=== PATIENT | male | born 1960 | race Caucasian/White ===

== ENCOUNTER 2024-08-03 07:54 | Inpatient (IN) ==
[2024-08-03] MEDS ORDERED: ULTANE GAS IN ONE (10:13)
[2024-08-03] MEDS ORDERED: XYLOCAINE 2 % (PLAIN) ONE (10:13)
[2024-08-03] MEDS ORDERED: KETAMINE HCL ONE (10:13)
[2024-08-03 11:44] LABS: BASOPHILS # (AUTO) 0.1 X10^3/uL (0.0-0.1); BASOPHILS % (AUTO) 0.9 % (0.2-1.0); EOSINOPHILS % (AUTO) 0.2 % (0.9-2.9); HEMOGLOBIN 11.3 g/dL (13.5-18.0); LYMPHOCYTES # (AUTO) 0.8 X10^3/uL (1.3-2.9); LYMPHOCYTES % (AUTO) 7.1 % (21.0-51.0); MEAN CORPUSCULAR HEMOGLOBIN 29.3 pg (27.0-34.0); MEAN CORPUSCULAR HGB CONC 34.2 g/dL (33.0-35.0); MEAN CORPUSCULAR VOLUME 85.7 fL (80.0-100.0); MEAN PLATELET VOLUME 6.4 fL (7.4-11.0); MONOCYTES # (AUTO) 1.5 x10^3/uL (0.3-0.8); MONOCYTES % (AUTO) 12.5 % (0.0-13.0); NEUTROPHILS # (AUTO) 9.3 x10^3/uL (2.2-4.8); NEUTROPHILS % (AUTO) 79.3 % (42.0-75.0); PLATELET COUNT 575 X10^3/uL (150.0-450.0); RED BLOOD COUNT 3.84 X10^6/uL (4.7-6.0); RED CELL DISTRIBUTION WIDTH 14.2 % (11.6-16.5); WHITE BLOOD COUNT 11.8 X10^3/uL (3.6-10.0)
[2024-08-03] MEDS: PERCOCET TAB 5/325 MG PO PRN (11:48)
[2024-08-03] MEDS: ZOSYN VIAL 2.25 GRAMS 2.25 G in NS 100 ML IV 100 ML IV SCH (11:49)
[2024-08-03] MEDS: D5 1/2 NS 1,000 ML 1,000 ML IV SCH (11:49)
[2024-08-03] MEDS: NS 250 ML IV 25 ML IV PRN (11:49)
[2024-08-03 11:58] LABS: ALANINE AMINOTRANSFERASE 18 Units/L (12-78); ALKALINE PHOSPHATASE 94 Units/L (46-116); ASPARTATE AMINO TRANSFERASE 18 Units/L (15-37); BLOOD UREA NITROGEN 17 mg/dL (7-18); CALCIUM 9.4 mg/dL (8.5-10.1); CHLORIDE 100 mmol/L (98-107); COR CA(FOR HYPOALB) 10.2 mg/dL (8.5-10.1); CREATININE 1.11 mg/dL (0.70-1.30); GLUCOSE 98 mg/dL (65-99); POTASSIUM 3.6 mmol/L (3.5-5.1); SODIUM 137 mmol/L (136-145); TOTAL PROTEIN 9.4 g/dL (6.4-8.2); eGFR NON BLACK RACES > 60 (>60)
[2024-08-03] MEDS: LOVENOX INJ 40 MG SYR SC SCH (14:26)
[2024-08-03] MEDS: MORPHINE SULFATE INJ 2 MG INJ IVP PRN (15:22)
[2024-08-04 06:12] LABS: BASOPHILS # (AUTO) 0.1 X10^3/uL (0.0-0.1); EOSINOPHILS # (AUTO) 0.1 x10^3/uL (0.0-0.2); EOSINOPHILS % (AUTO) 0.8 % (0.9-2.9); HEMATOCRIT 28.3 % (42.0-54.0); HEMOGLOBIN 9.8 g/dL (13.5-18.0); LYMPHOCYTES # (AUTO) 1.1 X10^3/uL (1.3-2.9); LYMPHOCYTES % (AUTO) 14.8 % (21.0-51.0); MEAN CORPUSCULAR HEMOGLOBIN 29.4 pg (27.0-34.0); MEAN CORPUSCULAR HGB CONC 34.8 g/dL (33.0-35.0); MEAN CORPUSCULAR VOLUME 84.5 fL (80.0-100.0); MEAN PLATELET VOLUME 6.7 fL (7.4-11.0); MONOCYTES # (AUTO) 1.4 x10^3/uL (0.3-0.8); MONOCYTES % (AUTO) 18.3 % (0.0-13.0); NEUTROPHILS # (AUTO) 4.8 x10^3/uL (2.2-4.8); NEUTROPHILS % (AUTO) 65.1 % (42.0-75.0); PLATELET COUNT 481 X10^3/uL (150.0-450.0); RED BLOOD COUNT 3.35 X10^6/uL (4.7-6.0); RED CELL DISTRIBUTION WIDTH 14.1 % (11.6-16.5); WHITE BLOOD COUNT 7.4 X10^3/uL (3.6-10.0)
[2024-08-04 06:26] LABS: ALANINE AMINOTRANSFERASE 13 Units/L (12-78); ALKALINE PHOSPHATASE 70 Units/L (46-116); ASPARTATE AMINO TRANSFERASE 10 Units/L (15-37); BLOOD UREA NITROGEN 10 mg/dL (7-18); CALCIUM 8.3 mg/dL (8.5-10.1); CARBON DIOXIDE 26.4 mmol/L (21-32); CHLORIDE 103 mmol/L (98-107); COR CA(FOR HYPOALB) 9.9 mg/dL (8.5-10.1); COR NA(FOR HYPERGLY) 139 mmol/L (136-145); CREATININE 0.91 mg/dL (0.70-1.30); GLUCOSE 120 mg/dL (65-99); MAGNESIUM 1.8 mg/dL (2.0-2.9); POTASSIUM 3.3 mmol/L (3.5-5.1); SODIUM 139 mmol/L (136-145); TOTAL PROTEIN 7.2 g/dL (6.4-8.2); eGFR NON BLACK RACES > 60 (>60)
[2024-08-04] MEDS ORDERED: CONSULT PHARMACY - POTASSIUM & MAGNESIUM XX SCH (07:00)
[2024-08-04] MEDS: MAG-OX TAB PO SCH (08:54)
[2024-08-04] MEDS: K-DUR TAB 20 MEQ PO SCH (08:55)
--- NOTE | 2024-08-04 11:06 | DR.CONSULT ---
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 He was admitted by general surgery for possible perirectal abscess. Patient does report having increased pain in the area. Does not report any fevers or chills. He has no other medical history other than hypertension. Medicine consulted for medical management. Labs/imaging: WBC 7.4, hemoglobin 9.8, platelets 41, sodium 139, potassium 3.3, creatinine 0.91, glucose 120, CEA pending. Patient is currently receiving IV fluids D5 half-normal saline at 80 mL/h, clear liquid diet, IV antibiotics Zosyn. His blood pressure has remained in good control. Will hold on restarting his antihypertensive until blood pressure becomes elevated. Will continue to monitor. General surgery awaiting records from [facility]. He has also had MRI done in [facility]. Possible plan for a colonoscopy or further intervention pending reports. Otherwise we will continue with current treatment plan. Continue closely monitor and follow-up labs/imaging. Follow-up general surgery plan. Past Surgical History Surgical History: Tonsillectomy and Other Family History Family Medical History: Heart Failure Social History Type of Tobacco Use: None Alcohol Use: None Drug Use: None Medications Home Medications: No Known Drug Allergies Allergy (Verified 10/24/21 22:47) CONTINUE taking the following medications cholecalciferol (vitamin D3) 125 mcg (5,000 unit) tablet (Vitamin D3) 125 mcg PO DAILY 08/03/24 [History] ciprofloxacin HCl 500 mg tablet 500 mg PO BID 08/03/24 [History] hydrocodone 10 mg-acetaminophen 325 mg tablet 1 tab PO TID PRN pain 08/03/24 [History] ibuprofen 800 mg tablet 800 mg PO BID 08/03/24 [History] loratadine 10 mg tablet 10 mg PO DAILY 08/03/24 [History] vitamin B complex 1 tab PO DAILY 08/03/24 [History] Review of Systems Constitutional: No Symptoms Reported Eyes: No Symptoms Reported ENT: No Symptoms Reported Respiratory: No Symptoms Reported Cardiovascular: No Symptoms Reported Gastrointestinal: No Symptoms Reported Genitourinary: Other (perirectal pain) Musculoskeletal: No Symptoms Reported Skin: No Symptoms Reported Neurological: No Symptoms Reported Physical Exam Vital Signs: Vital Signs Temperature 98.4 F Temperature 99.2 F Pulse Rate [Left Radial] 60 Pulse Rate [Left Radial] 64 Respiratory Rate 18 Respiratory Rate 20 Respiratory Rate 20 Respiratory Rate 17 Respiratory Rate 22 Respiratory Rate 20 Respiratory Rate 19 Respiratory Rate 18 Blood Pressure [Left Arm] 105/58 Blood Pressure [Left Arm] 116/58 O2 Sat by Pulse Oximetry 97 O2 Sat by Pulse Oximetry 95 Oriented: Normal Eyes: Normal Ear: Normal Nose: Normal Respiratory: Clear Throughout Cardiovascular: Normal Auscultation: Bowel Sounds: Normal Palpation: Normal Tenderness: Normal Skin: Normal Musculoskeletal: Normal Mood Description: Calm Speech Pattern: Clear Plan (1) Perirectal abscess: Status: Acute Plan: Follow general surgery plan continue IV antibiotics (2) History of rectal cancer: Status: Acute (3) Essential hypertension: Status: None Plan: hold medications, monitor blood pressure
[2024-08-04] MEDS: SUPREP BOWEL PREP KIT PO SCH (12:59)
--- NOTE | 2024-08-04 14:07 | DR.PROGNOT ---
HOSPITAL PROGRESS NOTE Progress Note for Day of: Progress Note Date: 08/04/24 Chief Complaint Chief Complaint: Patient is having significant anal discharge with brownish and purulent material from the rectal fistula. Still complaining of tenderness of the left buttock but no drainage f. Had low-grade fever yesterday, today he is afebrile. White count 7.4, hemoglobin 9.8, potassium 3.3 and albumin 2.0. Past Medical Family Social History Past Med/Fam/Surg Hx: No changes since H&P (Controlled hypertension, history of rectal cancer) Allergies: Allergies No Known Drug Allergies Allergy (Verified 10/24/21 22:47) Vital Signs Vital Signs: Vital Signs Temperature 98.4 F Temperature 98.4 F Pulse Rate [Left Radial] 66 Pulse Rate [Left Radial] 60 Respiratory Rate 19 Respiratory Rate 20 Respiratory Rate 20 Respiratory Rate 18 Respiratory Rate 20 Respiratory Rate 20 Respiratory Rate 17 Respiratory Rate 22 Blood Pressure [Left Arm] 112/62 Blood Pressure [Left Arm] 105/58 O2 Sat by Pulse Oximetry 97 O2 Sat by Pulse Oximetry 97 Physical Exam Oriented: Normal Eyes: Normal Ear: Normal Nose: Normal Cardiovascular: Normal GI:Auscultation: Normal GI:Palpation: Normal GI: Tenderness: Normal and Other (Anal discharge from the fistula of the anastomosis. Left buttock abscess is the same with induration and erythema.) Skin: Normal Musculoskeletal: Normal Mood Description: Calm Speech Pattern: Clear Laboratory and Diagnostics 08/04/24 05:40 08/04/24 05:40 Labs: Laboratory WBC 7.4 X10^3/uL (3.6-10.0) 08/04/24 05:40 RBC 3.35 X10^6/uL (4.7-6.0) L 08/04/24 05:40 Hgb 9.8 g/dL (13.5-18.0) L 08/04/24 05:40 Hct 28.3 % (42.0-54.0) L 08/04/24 05:40 MCV 84.5 fL (80.0-100.0) 08/04/24 05:40 MCH 29.4 pg (27.0-34.0) 08/04/24 05:40 MCHC 34.8 g/dL (33.0-35.0) 08/04/24 05:40 RDW 14.1 % (11.6-16.5) 08/04/24 05:40 Plt Count 481 X10^3/uL (150.0-450.0) H 08/04/24 05:40 MPV 6.7 fL (7.4-11.0) L 08/04/24 05:40 Neut % (Auto) 65.1 % (42.0-75.0) 08/04/24 05:40 Lymph % (Auto) 14.8 % (21.0-51.0) L 08/04/24 05:40 [place] % (Auto) 18.3 % (0.0-13.0) H 08/04/24 05:40 Eos % (Auto) 0.8 % (0.9-2.9) L 08/04/24 05:40 Baso % (Auto) 1.0 % (0.2-1.0) 08/04/24 05:40 Neut # (Auto) 4.8 x10^3/uL (2.2-4.8) 08/04/24 05:40 Lymph # (Auto) 1.1 X10^3/uL (1.3-2.9) L 08/04/24 05:40 [place] # (Auto) 1.4 x10^3/uL (0.3-0.8) H 08/04/24 05:40 Eos # (Auto) 0.1 x10^3/uL (0.0-0.2) 08/04/24 05:40 Baso # (Auto) 0.1 X10^3/uL (0.0-0.1) 08/04/24 05:40 Absolute Nucleated RBC 0.0 /100WBC 08/04/24 05:40 Sodium 139 mmol/L (136-145) 08/04/24 05:40 Corrected Sodium 139 mmol/L (136-145) 08/04/24 05:40 Potassium 3.3 mmol/L (3.5-5.1) L 08/04/24 05:40 Chloride 103 mmol/L (98-107) 08/04/24 05:40 Carbon Dioxide 26.4 mmol/L (21-32) 08/04/24 05:40 BUN 10 mg/dL (7-18) 08/04/24 05:40 Creatinine 0.91 mg/dL (0.70-1.30) 08/04/24 05:40 Est GFR (MDRD) Af Amer > 60 (>60) 08/04/24 05:40 Est GFR (MDRD) Non-Af > 60 (>60) 08/04/24 05:40 Glucose 120 mg/dL (65-99) H 08/04/24 05:40 POC Glucose (mg/dL) 113 mg/dL (65-99) H 08/04/24 05:35 Calcium 8.3 mg/dL (8.5-10.1) L 08/04/24 05:40 Corrected Calcium 9.9 mg/dL (8.5-10.1) 08/04/24 05:40 Magnesium 1.8 mg/dL (2.0-2.9) L 08/04/24 05:40 Total Bilirubin 0.30 mg/dL (0.2-1.0) 08/04/24 05:40 AST 10 Units/L (15-37) L 08/04/24 05:40 ALT 13 Units/L (12-78) 08/04/24 05:40 Alkaline Phosphatase 70 Units/L (46-116) 08/04/24 05:40 Total Protein 7.2 g/dL (6.4-8.2) 08/04/24 05:40 Albumin 2.0 g/dL (3.4-5.0) L 08/04/24 05:40 Globulin 5.2 g/dL (2.5-4.5) H 08/04/24 05:40 Albumin/Globulin Ratio 0.4 Ratio (1.1-2.1) L 08/04/24 05:40 Carcinoembryonic Ag <2.0 ng/mL 08/03/24 11:28 Assessment and Plan 1: Anal fistula most probably from the previous anastomosis. History of rectal cancer status post anterior resection. For colonoscopy in the morning, patient needs a transverse colostomy.
[2024-08-04] MEDS: HIBICLENS WASH EXT ONE (21:03)
[2024-08-05 06:03] LABS: BASOPHILS # (AUTO) 0.1 X10^3/uL (0.0-0.1); BASOPHILS % (AUTO) 1.4 % (0.2-1.0); EOSINOPHILS % (AUTO) 0.5 % (0.9-2.9); HEMATOCRIT 27.4 % (42.0-54.0); HEMOGLOBIN 9.3 g/dL (13.5-18.0); LYMPHOCYTES # (AUTO) 1.1 X10^3/uL (1.3-2.9); MEAN CORPUSCULAR HGB CONC 34.1 g/dL (33.0-35.0); MEAN CORPUSCULAR VOLUME 85.1 fL (80.0-100.0); MEAN PLATELET VOLUME 6.5 fL (7.4-11.0); MONOCYTES # (AUTO) 1.2 x10^3/uL (0.3-0.8); MONOCYTES % (AUTO) 18.9 % (0.0-13.0); NEUTROPHILS # (AUTO) 3.9 x10^3/uL (2.2-4.8); NEUTROPHILS % (AUTO) 62.2 % (42.0-75.0); PLATELET COUNT 451 X10^3/uL (150.0-450.0); RED BLOOD COUNT 3.21 X10^6/uL (4.7-6.0); WHITE BLOOD COUNT 6.3 X10^3/uL (3.6-10.0)
[2024-08-05 06:13] LABS: ALANINE AMINOTRANSFERASE 15 Units/L (12-78); ALKALINE PHOSPHATASE 62 Units/L (46-116); ASPARTATE AMINO TRANSFERASE 16 Units/L (15-37); BLOOD UREA NITROGEN 8 mg/dL (7-18); CALCIUM 8.1 mg/dL (8.5-10.1); CARBON DIOXIDE 25.9 mmol/L (21-32); CHLORIDE 106 mmol/L (98-107); COR CA(FOR HYPOALB) 9.7 mg/dL (8.5-10.1); COR NA(FOR HYPERGLY) 143 mmol/L (136-145); CREATININE 0.82 mg/dL (0.70-1.30); GLUCOSE 122 mg/dL (65-99); MAGNESIUM 1.9 mg/dL (2.0-2.9); POTASSIUM 3.6 mmol/L (3.5-5.1); SODIUM 142 mmol/L (136-145); TOTAL PROTEIN 6.9 g/dL (6.4-8.2); eGFR NON BLACK RACES > 60 (>60)
[2024-08-05] MEDS: LR 1,000 ML IV 300 ML IV PRN (08:26)
[2024-08-05] MEDS ORDERED: XYLOCAINE 2 % (PLAIN) PRN (08:31)
[2024-08-05] MEDS: DIPRIVAN VIAL 200 ML IVP PRN (08:32)
[2024-08-05] MEDS: EPHEDRINE SULFATE INJ IVP PRN (08:51)
[2024-08-05] MEDS: DIPRIVAN VIAL 20 ML ONE (09:13)
[2024-08-05] MEDS: LR 1,000 ML IV 1,000 ML IV ONE (09:14)
[2024-08-05] MEDS: EPHEDRINE SULFATE INJ ONE ×2 (09:14)
[2024-08-06 06:12] LABS: BASOPHILS # (AUTO) 0.1 X10^3/uL (0.0-0.1); BASOPHILS % (AUTO) 2.1 % (0.2-1.0); EOSINOPHILS # (AUTO) 0.2 x10^3/uL (0.0-0.2); HEMATOCRIT 28.8 % (42.0-54.0); HEMOGLOBIN 9.8 g/dL (13.5-18.0); LYMPHOCYTES % (AUTO) 19.6 % (21.0-51.0); MEAN CORPUSCULAR HEMOGLOBIN 28.9 pg (27.0-34.0); MEAN CORPUSCULAR HGB CONC 34.1 g/dL (33.0-35.0); MEAN CORPUSCULAR VOLUME 84.8 fL (80.0-100.0); MEAN PLATELET VOLUME 6.2 fL (7.4-11.0); MONOCYTES # (AUTO) 0.8 x10^3/uL (0.3-0.8); MONOCYTES % (AUTO) 15.1 % (0.0-13.0); NEUTROPHILS % (AUTO) 59.2 % (42.0-75.0); PLATELET COUNT 489 X10^3/uL (150.0-450.0); RED BLOOD COUNT 3.39 X10^6/uL (4.7-6.0); RED CELL DISTRIBUTION WIDTH 14.2 % (11.6-16.5)
[2024-08-06 06:25] LABS: ALANINE AMINOTRANSFERASE 18 Units/L (12-78); ALBUMIN 2.1 g/dL (3.4-5.0); ALKALINE PHOSPHATASE 63 Units/L (46-116); ASPARTATE AMINO TRANSFERASE 17 Units/L (15-37); BLOOD UREA NITROGEN 8 mg/dL (7-18); CARBON DIOXIDE 25.5 mmol/L (21-32); CHLORIDE 106 mmol/L (98-107); COR CA(FOR HYPOALB) 9.5 mg/dL (8.5-10.1); CREATININE 0.86 mg/dL (0.70-1.30); GLUCOSE 110 mg/dL (65-99); MAGNESIUM 1.9 mg/dL (2.0-2.9); POTASSIUM 3.3 mmol/L (3.5-5.1); SODIUM 141 mmol/L (136-145); TOTAL PROTEIN 7.3 g/dL (6.4-8.2); eGFR NON BLACK RACES > 60 (>60)
[2024-08-06] MEDS ORDERED: CONSULT PHARMACY - POTASSIUM & MAGNESIUM XX SCH (07:00)
[2024-08-06] MEDS: MYLICON TAB 80 MG CHEW PO PRN (07:43)
[2024-08-06] MEDS: CLARITIN PO SCH (07:44)
[2024-08-06] MEDS: NORVASC TAB 10 MG PO SCH (07:45)
[2024-08-06] MEDS: VITAMIN D3 125 mcg (5,000 UNITS) PO SCH (07:46)
[2024-08-06] MEDS: ZESTRIL TAB 20 MG PO SCH (07:47)
[2024-08-06] MEDS: PROTONIX INJ 40 MG VIAL IVP SCH (08:01)
[2024-08-06] MEDS: K-DUR TAB 20 MEQ PO SCH (08:38)
[2024-08-06] MEDS: MAG-OX TAB PO SCH (08:38)
[2024-08-06] MEDS ORDERED: VITAMIN B COMPLEX PO SCH (09:00)
--- NOTE | 2024-08-06 09:21 | DR.PROGNOT ---
HOSPITAL PROGRESS NOTE Progress Note for Day of: Progress Note Date: 08/06/24 Chief Complaint Chief Complaint: Patient is having significant anal discharge with brownish and purulent material from the rectal fistula. Still complaining of tenderness of the left buttock but no drainage from the abscess. Had low-grade fever yesterday, today he is afebrile. White count 9.8, platelet count 489, potassium 3.3, liver function tests are normal, albumin 2.1. Still have induration on the left buttock no necrosis or abscess formation. Abdomen is soft flat bowel sounds present. No changes in his history and the rest of his exam. Past Medical Family Social History Past Med/Fam/Surg Hx: No changes since H&P (Controlled hypertension, history of rectal cancer) Allergies: Allergies No Known Drug Allergies Allergy (Verified 10/24/21 22:47) Vital Signs Vital Signs: Vital Signs Temperature 97.1 F Temperature 97.9 F Pulse Rate [Left Radial] 56 Pulse Rate [Left Radial] 64 Respiratory Rate 20 Respiratory Rate 20 Respiratory Rate 20 Respiratory Rate 18 Respiratory Rate 20 Respiratory Rate 18 Blood Pressure [Right Arm] 115/59 Blood Pressure [Right Arm] 132/62 O2 Sat by Pulse Oximetry 95 O2 Sat by Pulse Oximetry 95 Physical Exam Oriented: Normal Eyes: Normal Ear: Normal Nose: Normal Cardiovascular: Normal GI:Auscultation: Normal GI:Palpation: Normal GI: Tenderness: Normal and Other (Anal discharge from the fistula of the anastomosis. Left buttock abscess is the same with induration and erythema.) Skin: Normal Musculoskeletal: Normal Mood Description: Calm Speech Pattern: Clear and Appropriate Laboratory and Diagnostics 08/06/24 05:48 08/06/24 05:48 Labs: Laboratory WBC 5.0 X10^3/uL (3.6-10.0) 08/06/24 05:48 RBC 3.39 X10^6/uL (4.7-6.0) L 08/06/24 05:48 Hgb 9.8 g/dL (13.5-18.0) L 08/06/24 05:48 Hct 28.8 % (42.0-54.0) L 08/06/24 05:48 MCV 84.8 fL (80.0-100.0) 08/06/24 05:48 MCH 28.9 pg (27.0-34.0) 08/06/24 05:48 MCHC 34.1 g/dL (33.0-35.0) 08/06/24 05:48 RDW 14.2 % (11.6-16.5) 08/06/24 05:48 Plt Count 489 X10^3/uL (150.0-450.0) H 08/06/24 05:48 MPV 6.2 fL (7.4-11.0) L 08/06/24 05:48 Neut % (Auto) 59.2 % (42.0-75.0) 08/06/24 05:48 Lymph % (Auto) 19.6 % (21.0-51.0) L 08/06/24 05:48 [place] % (Auto) 15.1 % (0.0-13.0) H 08/06/24 05:48 Eos % (Auto) 4.0 % (0.9-2.9) H 08/06/24 05:48 Baso % (Auto) 2.1 % (0.2-1.0) H 08/06/24 05:48 Neut # (Auto) 3.0 x10^3/uL (2.2-4.8) 08/06/24 05:48 Lymph # (Auto) 1.0 X10^3/uL (1.3-2.9) L 08/06/24 05:48 [place] # (Auto) 0.8 x10^3/uL (0.3-0.8) 08/06/24 05:48 Eos # (Auto) 0.2 x10^3/uL (0.0-0.2) 08/06/24 05:48 Baso # (Auto) 0.1 X10^3/uL (0.0-0.1) 08/06/24 05:48 Absolute Nucleated RBC 0.1 /100WBC 08/06/24 05:48 Sodium 141 mmol/L (136-145) 08/06/24 05:48 Corrected Sodium TNP 08/06/24 05:48 Potassium 3.3 mmol/L (3.5-5.1) L 08/06/24 05:48 Chloride 106 mmol/L (98-107) 08/06/24 05:48 Carbon Dioxide 25.5 mmol/L (21-32) 08/06/24 05:48 BUN 8 mg/dL (7-18) 08/06/24 05:48 Creatinine 0.86 mg/dL (0.70-1.30) 08/06/24 05:48 Est GFR (MDRD) Af Amer > 60 (>60) 08/06/24 05:48 Est GFR (MDRD) Non-Af > 60 (>60) 08/06/24 05:48 Glucose 110 mg/dL (65-99) H 08/06/24 05:48 POC Glucose (mg/dL) 113 mg/dL (65-99) H 08/04/24 05:35 Calcium 8.0 mg/dL (8.5-10.1) L 08/06/24 05:48 Corrected Calcium 9.5 mg/dL (8.5-10.1) 08/06/24 05:48 Magnesium 1.9 mg/dL (2.0-2.9) L 08/06/24 05:48 Total Bilirubin 0.20 mg/dL (0.2-1.0) 08/06/24 05:48 AST 17 Units/L (15-37) 08/06/24 05:48 ALT 18 Units/L (12-78) 08/06/24 05:48 Alkaline Phosphatase 63 Units/L (46-116) 08/06/24 05:48 Total Protein 7.3 g/dL (6.4-8.2) 08/06/24 05:48 Albumin 2.1 g/dL (3.4-5.0) L 08/06/24 05:48 Globulin 5.2 g/dL (2.5-4.5) H 08/06/24 05:48 Albumin/Globulin Ratio 0.4 Ratio (1.1-2.1) L 08/06/24 05:48 Carcinoembryonic Ag <2.0 ng/mL 08/03/24 11:28 Assessment and Plan 1: Anal fistula most probably from the previous anastomosis. History of rectal cancer status post anterior resection. For diverting transverse colostomy on Thursday. The procedure was discussed and explained to the patient in details.
[2024-08-06 09:44] VITALS: BMI 24.5
[2024-08-07 05:57] LABS: BASOPHILS # (AUTO) 0.1 X10^3/uL (0.0-0.1); BASOPHILS % (AUTO) 1.3 % (0.2-1.0); EOSINOPHILS # (AUTO) 0.3 x10^3/uL (0.0-0.2); EOSINOPHILS % (AUTO) 4.8 % (0.9-2.9); HEMATOCRIT 28.8 % (42.0-54.0); HEMOGLOBIN 9.7 g/dL (13.5-18.0); LYMPHOCYTES # (AUTO) 1.1 X10^3/uL (1.3-2.9); LYMPHOCYTES % (AUTO) 16.7 % (21.0-51.0); MEAN CORPUSCULAR HEMOGLOBIN 28.6 pg (27.0-34.0); MEAN CORPUSCULAR HGB CONC 33.7 g/dL (33.0-35.0); MEAN PLATELET VOLUME 6.4 fL (7.4-11.0); MONOCYTES # (AUTO) 0.8 x10^3/uL (0.3-0.8); MONOCYTES % (AUTO) 12.2 % (0.0-13.0); NEUTROPHILS # (AUTO) 4.4 x10^3/uL (2.2-4.8); PLATELET COUNT 516 X10^3/uL (150.0-450.0); RED BLOOD COUNT 3.39 X10^6/uL (4.7-6.0); RED CELL DISTRIBUTION WIDTH 14.4 % (11.6-16.5); WHITE BLOOD COUNT 6.8 X10^3/uL (3.6-10.0)
[2024-08-07 06:07] LABS: ALANINE AMINOTRANSFERASE 16 Units/L (12-78); ALBUMIN 2.1 g/dL (3.4-5.0); ALKALINE PHOSPHATASE 61 Units/L (46-116); ASPARTATE AMINO TRANSFERASE 16 Units/L (15-37); BLOOD UREA NITROGEN 6 mg/dL (7-18); CALCIUM 8.1 mg/dL (8.5-10.1); CARBON DIOXIDE 22.7 mmol/L (21-32); CHLORIDE 106 mmol/L (98-107); COR CA(FOR HYPOALB) 9.6 mg/dL (8.5-10.1); CREATININE 0.99 mg/dL (0.70-1.30); GLUCOSE 106 mg/dL (65-99); POTASSIUM 3.7 mmol/L (3.5-5.1); SODIUM 141 mmol/L (136-145); TOTAL PROTEIN 7.2 g/dL (6.4-8.2); eGFR NON BLACK RACES > 60 (>60)
[2024-08-07] MEDS ORDERED: CONSULT PHARMACY - POTASSIUM & MAGNESIUM XX SCH (07:00)
[2024-08-07] MEDS: K-DUR TAB 20 MEQ PO ONE (08:09)
[2024-08-07] MEDS: ZESTRIL TAB 20 MG ONE (08:44)
[2024-08-07] MEDS: CITROMA PO ONE (11:46)
[2024-08-07] MEDS: FLAGYL IV PREMIX 500 MG BAG 500 MG/100 ML BAG IV SCH (11:46)
[2024-08-07] MEDS: HIBICLENS WASH EXT ONE (21:16)
[2024-08-08 05:13] LABS: MEAN PLATELET VOLUME 6.3 fL (7.4-11.0)
[2024-08-08 05:21] LABS: BASOPHILS # (AUTO) 0.1 X10^3/uL (0.0-0.1); BASOPHILS % (AUTO) 1.5 % (0.2-1.0); EOSINOPHILS # (AUTO) 0.3 x10^3/uL (0.0-0.2); EOSINOPHILS % (AUTO) 4.8 % (0.9-2.9); HEMATOCRIT 30.5 % (42.0-54.0); HEMOGLOBIN 10.3 g/dL (13.5-18.0); LYMPHOCYTES # (AUTO) 0.9 X10^3/uL (1.3-2.9); LYMPHOCYTES % (AUTO) 13.9 % (21.0-51.0); MEAN CORPUSCULAR HEMOGLOBIN 28.8 pg (27.0-34.0); MEAN CORPUSCULAR HGB CONC 33.9 g/dL (33.0-35.0); MONOCYTES # (AUTO) 0.7 x10^3/uL (0.3-0.8); MONOCYTES % (AUTO) 10.2 % (0.0-13.0); NEUTROPHILS # (AUTO) 4.6 x10^3/uL (2.2-4.8); NEUTROPHILS % (AUTO) 69.6 % (42.0-75.0); PLATELET COUNT 502 X10^3/uL (150.0-450.0); RED BLOOD COUNT 3.59 X10^6/uL (4.7-6.0); RED CELL DISTRIBUTION WIDTH 14.5 % (11.6-16.5); WHITE BLOOD COUNT 6.5 X10^3/uL (3.6-10.0)
[2024-08-08 05:25] LABS: ALANINE AMINOTRANSFERASE 16 Units/L (12-78); ALBUMIN 2.2 g/dL (3.4-5.0); ALKALINE PHOSPHATASE 56 Units/L (46-116); ASPARTATE AMINO TRANSFERASE 13 Units/L (15-37); BLOOD UREA NITROGEN 4 mg/dL (7-18); CALCIUM 8.4 mg/dL (8.5-10.1); CARBON DIOXIDE 27.9 mmol/L (21-32); CHLORIDE 107 mmol/L (98-107); COR CA(FOR HYPOALB) 9.8 mg/dL (8.5-10.1); GLUCOSE 105 mg/dL (65-99); POTASSIUM 3.6 mmol/L (3.5-5.1); SODIUM 142 mmol/L (136-145); TOTAL PROTEIN 7.1 g/dL (6.4-8.2); eGFR NON BLACK RACES > 60 (>60)
[2024-08-08] MEDS ORDERED: CONSULT PHARMACY - POTASSIUM & MAGNESIUM XX SCH (07:00)
[2024-08-08] MEDS: ZESTRIL TAB 20 MG ONE (09:34)
--- NOTE | 2024-08-08 10:26 | PCM.PROG ---
Progress Note Progress Note for Day of Date of Exam: 08/08/24 Subjective Subjective: Patient seen at bedside, no acute events overnight. He is scheduled for transverse colostomy today. Denies any complaints at this time. His pain has been controlled. He is currently NPO. He remains on IV antibiotics. Labs/imaging reviewed: -WBC 6.5 Hgb 10.3 K 3.6 Cr 0.80 Plan: scheduled for surgery today, follow surgery recommendations and post-op care. Continue hydration and IV antibiotics. Continue pain control. NPO status. Replace electrolytes as per protocol. Monitor AM labs/imaging. Past Medical Family Social History Past Med/Fam/Surg Hx: No changes since H&P (Controlled hypertension, history of rectal cancer) Allergies: Allergies No Known Drug Allergies Allergy (Verified 10/24/21 22:47) Vital Signs and I&O's Vital Signs: Vital Signs Temperature 98.3 F Temperature 97.6 F Pulse Rate [Right Brachial] 54 Pulse Rate [Right Brachial] 52 Respiratory Rate 16 Respiratory Rate 19 Respiratory Rate 20 Respiratory Rate 16 Respiratory Rate 18 Blood Pressure [Right Arm] 147/72 Blood Pressure [Right Arm] 140/66 O2 Sat by Pulse Oximetry 97 O2 Sat by Pulse Oximetry 97 Intake and Output: Intake & Output 08/05/24 08/06/24 08/07/24 08/08/24 23:59 23:59 23:59 23:59 Intake Total 2220 / 1 3754 / 3754 3275 / 3275 649 / 649 Balance 2220 / 1 3754 / 3754 3275 / 3275 649 / 649 Physical Exam Oriented: Normal Eyes: Normal Ear: Normal Nose: Normal Respiratory: Normal Cardiovascular: Normal Auscultation: Bowel Sounds: Normal Palpation: Normal Tenderness: Normal and Other (Anal discharge from the fistula of the anastomosis. Left buttock abscess is the same with induration and erythema.) Skin: Normal Musculoskeletal: Normal Mood Description: Calm Affect: Normal Speech Pattern: Clear and Appropriate Laboratory and Diagnostics 08/08/24 04:40 08/08/24 04:40 Labs: Laboratory WBC 6.5 X10^3/uL (3.6-10.0) 08/08/24 04:40 RBC 3.59 X10^6/uL (4.7-6.0) L 08/08/24 04:40 Hgb 10.3 g/dL (13.5-18.0) L 08/08/24 04:40 Hct 30.5 % (42.0-54.0) L 08/08/24 04:40 MCV 85.0 fL (80.0-100.0) 08/08/24 04:40 MCH 28.8 pg (27.0-34.0) 08/08/24 04:40 MCHC 33.9 g/dL (33.0-35.0) 08/08/24 04:40 RDW 14.5 % (11.6-16.5) 08/08/24 04:40 Plt Count 502 X10^3/uL (150.0-450.0) H 08/08/24 04:40 MPV 6.3 fL (7.4-11.0) L 08/08/24 04:40 Neut % (Auto) 69.6 % (42.0-75.0) 08/08/24 04:40 Lymph % (Auto) 13.9 % (21.0-51.0) L 08/08/24 04:40 [place] % (Auto) 10.2 % (0.0-13.0) 08/08/24 04:40 Eos % (Auto) 4.8 % (0.9-2.9) H 08/08/24 04:40 Baso % (Auto) 1.5 % (0.2-1.0) H 08/08/24 04:40 Neut # (Auto) 4.6 x10^3/uL (2.2-4.8) 08/08/24 04:40 Lymph # (Auto) 0.9 X10^3/uL (1.3-2.9) L 08/08/24 04:40 [place] # (Auto) 0.7 x10^3/uL (0.3-0.8) 08/08/24 04:40 Eos # (Auto) 0.3 x10^3/uL (0.0-0.2) H 08/08/24 04:40 Baso # (Auto) 0.1 X10^3/uL (0.0-0.1) 08/08/24 04:40 Absolute Nucleated RBC 0.2 /100WBC 08/08/24 04:40 Sodium 142 mmol/L (136-145) 08/08/24 04:40 Corrected Sodium TNP 08/08/24 04:40 Potassium 3.6 mmol/L (3.5-5.1) 08/08/24 04:40 Chloride 107 mmol/L (98-107) 08/08/24 04:40 Carbon Dioxide 27.9 mmol/L (21-32) 08/08/24 04:40 BUN 4 mg/dL (7-18) L 08/08/24 04:40 Creatinine 0.80 mg/dL (0.70-1.30) 08/08/24 04:40 Est GFR (MDRD) Af Amer > 60 (>60) 08/08/24 04:40 Est GFR (MDRD) Non-Af > 60 (>60) 08/08/24 04:40 Glucose 105 mg/dL (65-99) H 08/08/24 04:40 POC Glucose (mg/dL) 113 mg/dL (65-99) H 08/04/24 05:35 Calcium 8.4 mg/dL (8.5-10.1) L 08/08/24 04:40 Corrected Calcium 9.8 mg/dL (8.5-10.1) 08/08/24 04:40 Magnesium 2.2 mg/dL (2.0-2.9) 08/08/24 04:40 Total Bilirubin 0.30 mg/dL (0.2-1.0) 08/08/24 04:40 AST 13 Units/L (15-37) L 08/08/24 04:40 ALT 16 Units/L (12-78) 08/08/24 04:40 Alkaline Phosphatase 56 Units/L (46-116) 08/08/24 04:40 Total Protein 7.1 g/dL (6.4-8.2) 08/08/24 04:40 Albumin 2.2 g/dL (3.4-5.0) L 08/08/24 04:40 Globulin 4.9 g/dL (2.5-4.5) H 08/08/24 04:40 Albumin/Globulin Ratio 0.4 Ratio (1.1-2.1) L 08/08/24 04:40 Carcinoembryonic Ag <2.0 ng/mL 06/18/25 11:28 Plan (1) Perirectal abscess: Status: Acute (2) History of rectal cancer: Status: Acute (3) Essential hypertension: Status: None (4) Colon cancer: Status: Chronic Qualifiers: Colon location: unspecified part of colon Qualified Code(s): C18.9 - Malignant neoplasm of colon, unspecified
[2024-08-08] MEDS: K-DUR TAB 20 MEQ PO SCH ×2 (10:29→21:23)
--- NOTE | 2024-08-08 11:39 | EKG ---
Test Reason : pre-op protocol Blood Pressure : */* mmHG Vent. Rate : 57 BPM Atrial Rate : 57 BPM P-R Int : 206 ms QRS Dur : 78 ms QT Int : 436 ms P-R-T Axes : 32 19 15 degrees QTc Int : 424 ms Sinus bradycardia Otherwise normal ECG No previous ECGs available Confirmed by Eitan Cruz MD ([id number]) on 08/08/2024 2:08:13 PM Referred By: Confirmed By: Eitan Cruz MD
[2024-08-08] MEDS: FENTANYL VIAL INJ 100 mcg ONE (12:38)
[2024-08-08] MEDS: VERSED ONE (12:38)
[2024-08-08] MEDS: DIPRIVAN VIAL 20 ML ONE (12:46)
[2024-08-08] MEDS: OFIRMEV IV 1000 MG VIAL 1,000 MG/100 ML VIAL IV ONE (12:46)
[2024-08-08] MEDS: BRIDION ONE (12:46)
[2024-08-08] MEDS: ZEMURON 100 MG VIAL ONE (12:47)
[2024-08-08] MEDS: ZOFRAN INJ 4 MG VIAL ONE (12:47)
[2024-08-08] MEDS: REGLAN INJ 10 MG VIAL ONE (12:47)
[2024-08-08] MEDS: LR 1,000 ML IV 1,000 ML IV ONE (13:15)
[2024-08-08] MEDS: PEPCID 20 MG VIAL ONE (13:20)
[2024-08-08] MEDS: VERSED IVP PRN (13:30)
[2024-08-08] MEDS: LR 1,000 ML IV 800 ML IV PRN (13:30)
[2024-08-08] MEDS: ZOFRAN INJ 4 MG VIAL IVP PRN (13:31)
[2024-08-08] MEDS: PEPCID 20 MG VIAL IVP PRN (13:33)
[2024-08-08] MEDS: REGLAN INJ 10 MG VIAL IVP PRN (13:34)
[2024-08-08] MEDS ORDERED: XYLOCAINE 2 % (PLAIN) PRN (13:46)
[2024-08-08] MEDS: FENTANYL VIAL INJ 100 mcg IVP PRN (13:46)
[2024-08-08] MEDS: KETAMINE HCL IV PRN (13:46)
[2024-08-08] MEDS: ZEMURON 100 MG VIAL IVP PRN (13:48)
[2024-08-08] MEDS: EPHEDRINE SULFATE INJ ONE (13:49)
[2024-08-08] MEDS ORDERED: DANTRIUM IVP PRN (13:57)
[2024-08-08] MEDS: POLYMYXIN B SULFATE ONE (13:58)
[2024-08-08] MEDS: DIPRIVAN VIAL 200 ML IVP PRN (14:00)
[2024-08-08] MEDS: EPHEDRINE SULFATE INJ IVP PRN (14:26)
[2024-08-08] MEDS: DILAUDID INJ ONE (14:46)
[2024-08-08] MEDS: OFIRMEV IV 1000 MG VIAL 1,000 MG/100 ML VIAL IV PRN (14:49)
[2024-08-08] MEDS ORDERED: BENADRYL INJ 50 MG VIAL IVP PRN (14:50)
[2024-08-08] MEDS ORDERED: ZOFRAN INJ 4 MG VIAL IVP PRN ×2 (14:50→15:23)
[2024-08-08] MEDS ORDERED: DILAUDID INJ IVP PRN (14:50)
[2024-08-08] MEDS ORDERED: BARHEMSYS INJ IVP PRN (14:50)
[2024-08-08] MEDS: ROBINUL ONE (14:59)
[2024-08-08] MEDS: BRIDION IVP PRN (14:59)
[2024-08-08] MEDS: ROBINUL IVP PRN (15:01)
[2024-08-08] MEDS: DILAUDID INJ IVP PRN (15:04)
[2024-08-08] MEDS: MORPHINE SULFATE INJ 4 MG IVP PRN (16:05)
[2024-08-08] MEDS: D5 1/2 NS 1,000 ML 1,000 ML IV SCH (16:09)
[2024-08-09 05:36] LABS: BASOPHILS # (AUTO) 0.1 X10^3/uL (0.0-0.1); BASOPHILS % (AUTO) 0.5 % (0.2-1.0); EOSINOPHILS # (AUTO) 0.2 x10^3/uL (0.0-0.2); EOSINOPHILS % (AUTO) 1.7 % (0.9-2.9); HEMOGLOBIN 11.3 g/dL (13.5-18.0); LYMPHOCYTES % (AUTO) 9.3 % (21.0-51.0); MEAN CORPUSCULAR HEMOGLOBIN 29.1 pg (27.0-34.0); MEAN CORPUSCULAR HGB CONC 34.2 g/dL (33.0-35.0); MEAN CORPUSCULAR VOLUME 85.1 fL (80.0-100.0); MONOCYTES # (AUTO) 0.6 x10^3/uL (0.3-0.8); MONOCYTES % (AUTO) 5.4 % (0.0-13.0); NEUTROPHILS # (AUTO) 8.8 x10^3/uL (2.2-4.8); NEUTROPHILS % (AUTO) 83.1 % (42.0-75.0); PLATELET COUNT 553 X10^3/uL (150.0-450.0); RED BLOOD COUNT 3.88 X10^6/uL (4.7-6.0); RED CELL DISTRIBUTION WIDTH 14.3 % (11.6-16.5); WHITE BLOOD COUNT 10.6 X10^3/uL (3.6-10.0)
[2024-08-09 05:48] LABS: ALANINE AMINOTRANSFERASE 17 Units/L (12-78); ALBUMIN 2.3 g/dL (3.4-5.0); ALKALINE PHOSPHATASE 61 Units/L (46-116); ASPARTATE AMINO TRANSFERASE 17 Units/L (15-37); BLOOD UREA NITROGEN 6 mg/dL (7-18); CALCIUM 8.4 mg/dL (8.5-10.1); CARBON DIOXIDE 28.2 mmol/L (21-32); CHLORIDE 105 mmol/L (98-107); COR CA(FOR HYPOALB) 9.8 mg/dL (8.5-10.1); COR NA(FOR HYPERGLY) 142 mmol/L (136-145); CREATININE 0.82 mg/dL (0.70-1.30); GLUCOSE 133 mg/dL (65-99); POTASSIUM 3.7 mmol/L (3.5-5.1); SODIUM 141 mmol/L (136-145); TOTAL PROTEIN 7.7 g/dL (6.4-8.2); eGFR NON BLACK RACES > 60 (>60)
[2024-08-09] MEDS ORDERED: ZESTRIL TAB 20 MG ONE (08:00)
[2024-08-09] MEDS ORDERED: CONSULT PHARMACY - POTASSIUM & MAGNESIUM XX SCH (08:00)
--- NOTE | 2024-08-09 08:16 | DR.PROGNOT ---
HOSPITAL PROGRESS NOTE Progress Note for Day of: Progress Note Date: 08/09/24 Chief Complaint Chief Complaint: Postoperative complaint diverting colostomy of the transverse colon. anal and buttock pain is improving with IV antibiotics. Patient is having significant anal discharge with brownish and purulent material from the anastomotic leak. Had low-grade fever yesterday, today he is afebrile. White count 10.6 platelet count 489, potassium 3.3, liver function tests are normal, albumin 2.3.Albu 2.3 Still have induration on the left buttock no necrosis or abscess formation. Abdomen is soft flat bowel sounds present. Colostomy looks healthy No changes in his history and the rest of his exam. Past Medical Family Social History Past Med/Fam/Surg Hx: No changes since H&P (Controlled hypertension, history of rectal cancer) Allergies: Allergies No Known Drug Allergies Allergy (Verified 10/24/21 22:47) Vital Signs Vital Signs: Vital Signs Temperature 98.1 F Pulse Rate [Right Brachial] 61 Respiratory Rate 18 Respiratory Rate 18 Respiratory Rate 20 Blood Pressure [Right Arm] 127/65 O2 Sat by Pulse Oximetry 96 Physical Exam Oriented: Normal Eyes: Normal Ear: Normal Nose: Normal Respiratory: Normal Cardiovascular: Normal GI:Auscultation: Normal GI:Palpation: Normal GI: Tenderness: Normal and Other (Anal discharge from the fistula of the anastomosis. Left buttock abscess is the same with induration and erythema.) Skin: Normal Musculoskeletal: Normal Mood Description: Calm Affect: Normal Speech Pattern: Clear and Appropriate Laboratory and Diagnostics 08/09/24 05:23 08/09/24 05:23 Labs: Laboratory WBC 10.6 X10^3/uL (3.6-10.0) H 08/09/24 05:23 RBC 3.88 X10^6/uL (4.7-6.0) L 08/09/24 05:23 Hgb 11.3 g/dL (13.5-18.0) L 08/09/24 05:23 Hct 33.0 % (42.0-54.0) L 08/09/24 05:23 MCV 85.1 fL (80.0-100.0) 08/09/24 05:23 MCH 29.1 pg (27.0-34.0) 08/09/24 05:23 MCHC 34.2 g/dL (33.0-35.0) 08/09/24 05:23 RDW 14.3 % (11.6-16.5) 08/09/24 05:23 Plt Count 553 X10^3/uL (150.0-450.0) H 08/09/24 05:23 MPV 6.0 fL (7.4-11.0) L 08/09/24 05:23 Neut % (Auto) 83.1 % (42.0-75.0) H 08/09/24 05:23 Lymph % (Auto) 9.3 % (21.0-51.0) L 08/09/24 05:23 [place] % (Auto) 5.4 % (0.0-13.0) 08/09/24 05:23 Eos % (Auto) 1.7 % (0.9-2.9) 08/09/24 05:23 Baso % (Auto) 0.5 % (0.2-1.0) 08/09/24 05:23 Neut # (Auto) 8.8 x10^3/uL (2.2-4.8) H 08/09/24 05:23 Lymph # (Auto) 1.0 X10^3/uL (1.3-2.9) L 08/09/24 05:23 [place] # (Auto) 0.6 x10^3/uL (0.3-0.8) 08/09/24 05:23 Eos # (Auto) 0.2 x10^3/uL (0.0-0.2) 08/09/24 05:23 Baso # (Auto) 0.1 X10^3/uL (0.0-0.1) 08/09/24 05:23 Absolute Nucleated RBC 0.0 /100WBC 08/09/24 05:23 Sodium 141 mmol/L (136-145) 08/09/24 05:23 Corrected Sodium 142 mmol/L (136-145) 08/09/24 05:23 Potassium 3.7 mmol/L (3.5-5.1) 08/09/24 05:23 Chloride 105 mmol/L (98-107) 08/09/24 05:23 Carbon Dioxide 28.2 mmol/L (21-32) 08/09/24 05:23 BUN 6 mg/dL (7-18) L 08/09/24 05:23 Creatinine 0.82 mg/dL (0.70-1.30) 08/09/24 05:23 Est GFR (MDRD) Af Amer > 60 (>60) 08/09/24 05:23 Est GFR (MDRD) Non-Af > 60 (>60) 08/09/24 05:23 Glucose 133 mg/dL (65-99) H 08/09/24 05:23 POC Glucose (mg/dL) 113 mg/dL (65-99) H 08/04/24 05:35 Calcium 8.4 mg/dL (8.5-10.1) L 08/09/24 05:23 Corrected Calcium 9.8 mg/dL (8.5-10.1) 08/09/24 05:23 Magnesium 2.2 mg/dL (2.0-2.9) 08/08/24 04:40 Total Bilirubin 0.30 mg/dL (0.2-1.0) 08/09/24 05:23 AST 17 Units/L (15-37) 08/09/24 05:23 ALT 17 Units/L (12-78) 08/09/24 05:23 Alkaline Phosphatase 61 Units/L (46-116) 08/09/24 05:23 Total Protein 7.7 g/dL (6.4-8.2) 08/09/24 05:23 Albumin 2.3 g/dL (3.4-5.0) L 08/09/24 05:23 Globulin 5.4 g/dL (2.5-4.5) H 08/09/24 05:23 Albumin/Globulin Ratio 0.4 Ratio (1.1-2.1) L 08/09/24 05:23 Carcinoembryonic Ag <2.0 ng/mL 08/03/24 11:28 Assessment and Plan 1: Postoperative complete diverting colostomy of the transverse colon. Anal fistula most probably from the previous anastomotic leak . History of rectal cancer status post anterior resection. Postoperative care, full liquid diet, IV antibiotics.
[2024-08-09] MEDS: LOVENOX INJ 40 MG SYR SC SCH (08:20)
[2024-08-09] MEDS: KLOR-CON PO SCH (08:21)
--- NOTE | 2024-08-09 10:01 | PCM.PROG ---
Progress Note Progress Note for Day of Date of Exam: 08/09/24 Subjective Subjective: Patient seen at bedside, no acute events overnight. He underwent transverse colostomy yesterday. He is doing well, tolerating diet. He states his pain has been well-controlled. He was advanced to full liquids today. Labs/imaging reviewed: -WBC 10.6 Hgb 11.3 K 3.7 Cr 0.82 Plan: follow surgery recommendations and post-op care. Continue hydration and IV antibiotics. Continue pain control. Diet as per surgery. Encourage ambulation as tolerated. Replace electrolytes as per protocol. Monitor AM labs/imaging. Past Medical Family Social History Past Med/Fam/Surg Hx: No changes since H&P (Controlled hypertension, history of rectal cancer) Allergies: Allergies No Known Drug Allergies Allergy (Verified 10/24/21 22:47) Vital Signs and I&O's Vital Signs: Vital Signs Temperature 98.1 F Pulse Rate [Right Brachial] 61 Respiratory Rate 18 Respiratory Rate 18 Respiratory Rate 20 Blood Pressure [Right Arm] 127/65 O2 Sat by Pulse Oximetry 96 Intake and Output: Intake & Output 08/06/24 08/07/24 08/08/24 08/09/24 23:59 23:59 23:59 23:59 Intake Total 3754 / 3754 3275 / 3275 4342 / 4342 0 / 0 Output Total 530 / 530 500 / 500 Balance 3754 / 3754 3275 / 3275 3812 / 3812 -500 / -500 Physical Exam Oriented: Normal Eyes: Normal Ear: Normal Nose: Normal Respiratory: Normal Cardiovascular: Normal Auscultation: Bowel Sounds: Normal Tenderness: Other (stoma noted, some bloody drainage ) Skin: Normal Musculoskeletal: Normal Psychiatric: Normal Mood Description: Calm Affect: Normal Speech Pattern: Clear and Appropriate Laboratory and Diagnostics 08/09/24 05:23 08/09/24 05:23 Labs: Laboratory WBC 10.6 X10^3/uL (3.6-10.0) H 08/09/24 05:23 RBC 3.88 X10^6/uL (4.7-6.0) L 08/09/24 05:23 Hgb 11.3 g/dL (13.5-18.0) L 08/09/24 05:23 Hct 33.0 % (42.0-54.0) L 08/09/24 05:23 MCV 85.1 fL (80.0-100.0) 08/09/24 05:23 MCH 29.1 pg (27.0-34.0) 08/09/24 05:23 MCHC 34.2 g/dL (33.0-35.0) 08/09/24 05:23 RDW 14.3 % (11.6-16.5) 08/09/24 05:23 Plt Count 553 X10^3/uL (150.0-450.0) H 08/09/24 05:23 MPV 6.0 fL (7.4-11.0) L 08/09/24 05:23 Neut % (Auto) 83.1 % (42.0-75.0) H 08/09/24 05:23 Lymph % (Auto) 9.3 % (21.0-51.0) L 08/09/24 05:23 Scott % (Auto) 5.4 % (0.0-13.0) 08/09/24 05:23 Eos % (Auto) 1.7 % (0.9-2.9) 08/09/24 05:23 Baso % (Auto) 0.5 % (0.2-1.0) 08/09/24 05:23 Neut # (Auto) 8.8 x10^3/uL (2.2-4.8) H 08/09/24 05:23 Lymph # (Auto) 1.0 X10^3/uL (1.3-2.9) L 08/09/24 05:23 Scott # (Auto) 0.6 x10^3/uL (0.3-0.8) 08/09/24 05:23 Eos # (Auto) 0.2 x10^3/uL (0.0-0.2) 08/09/24 05:23 Baso # (Auto) 0.1 X10^3/uL (0.0-0.1) 08/09/24 05:23 Absolute Nucleated RBC 0.0 /100WBC 08/09/24 05:23 Sodium 141 mmol/L (136-145) 08/09/24 05:23 Corrected Sodium 142 mmol/L (136-145) 08/09/24 05:23 Potassium 3.7 mmol/L (3.5-5.1) 08/09/24 05:23 Chloride 105 mmol/L (98-107) 08/09/24 05:23 Carbon Dioxide 28.2 mmol/L (21-32) 08/09/24 05:23 BUN 6 mg/dL (7-18) L 08/09/24 05:23 Creatinine 0.82 mg/dL (0.70-1.30) 08/09/24 05:23 Est GFR (MDRD) Af Amer > 60 (>60) 08/09/24 05:23 Est GFR (MDRD) Non-Af > 60 (>60) 08/09/24 05:23 Glucose 133 mg/dL (65-99) H 08/09/24 05:23 POC Glucose (mg/dL) 113 mg/dL (65-99) H 08/04/24 05:35 Calcium 8.4 mg/dL (8.5-10.1) L 08/09/24 05:23 Corrected Calcium 9.8 mg/dL (8.5-10.1) 08/09/24 05:23 Magnesium 2.2 mg/dL (2.0-2.9) 08/08/24 04:40 Total Bilirubin 0.30 mg/dL (0.2-1.0) 08/09/24 05:23 AST 17 Units/L (15-37) 08/09/24 05:23 ALT 17 Units/L (12-78) 08/09/24 05:23 Alkaline Phosphatase 61 Units/L (46-116) 08/09/24 05:23 Total Protein 7.7 g/dL (6.4-8.2) 08/09/24 05:23 Albumin 2.3 g/dL (3.4-5.0) L 08/09/24 05:23 Globulin 5.4 g/dL (2.5-4.5) H 08/09/24 05:23 Albumin/Globulin Ratio 0.4 Ratio (1.1-2.1) L 08/09/24 05:23 Carcinoembryonic Ag <2.0 ng/mL 08/03/24 11:28 Plan (1) Colostomy care: Status: Acute (2) Perirectal abscess: Status: Acute (3) History of rectal cancer: Status: Chronic (4) Essential hypertension: Status: None (5) Colon cancer: Status: Chronic Qualifiers: Colon location: unspecified part of colon Qualified Code(s): C18.9 - Malignant neoplasm of colon, unspecified
--- NOTE | 2024-08-09 11:16 | PCM.PROG ---
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 He was admitted by general surgery for possible perirectal abscess. This morning patient had colonoscopy. No acute events overnight. Labs/imaging: WBC 6.3, hemoglobin 9.3, platelets 451, sodium 142, potassium 3.6, creatinine 0.82, glucose 122, CEA pending. Patient is currently receiving IV fluids D5 half-normal saline at 80 mL/h, clear liquid diet, IV antibiotics Zosyn. Will continue to monitor. General surgery plan for transverse colostomy Thursday. Otherwise continue with current treatment plan. Continue closely monitor and follow-up labs/imaging. Past Medical Family Social History Past Med/Fam/Surg Hx: No changes since H&P (Controlled hypertension, history of rectal cancer) Allergies: Allergies No Known Drug Allergies Allergy (Verified 10/24/21 22:47) Review of Systems ROS changes noted: see HPI Vital Signs and I&O's Vital Signs: Vital Signs Temperature 97.6 F Temperature 98.5 F Pulse Rate [Left Radial] 61 Pulse Rate [Left Radial] 63 Respiratory Rate 18 Respiratory Rate 19 Respiratory Rate 18 Respiratory Rate 18 Blood Pressure [Left Arm] 131/64 Blood Pressure [Left Arm] 121/61 O2 Sat by Pulse Oximetry 96 O2 Sat by Pulse Oximetry 97 Intake and Output: Intake & Output 08/02/24 08/03/24 08/04/24 08/05/24 23:59 23:59 23:59 23:59 Intake Total 1189 / 1189 3215 / 3215 821 / 821 Balance 1189 / 1189 3215 / 3215 821 / 821 Physical Exam Oriented: Normal Eyes: Normal Ear: Normal Nose: Normal Respiratory: Normal Cardiovascular: Normal Auscultation: Bowel Sounds: Normal Tenderness: Normal and Other (Anal discharge from the fistula of the anastomosis. Left buttock abscess is the same with induration and erythema.) Skin: Normal Musculoskeletal: Normal Mood Description: Calm Speech Pattern: Clear and Appropriate Laboratory and Diagnostics 08/09/24 05:23 08/09/24 05:23 Labs: Laboratory WBC 6.3 X10^3/uL (3.6-10.0) 08/05/24 05:24 RBC 3.21 X10^6/uL (4.7-6.0) L 08/05/24 05:24 Hgb 9.3 g/dL (13.5-18.0) L 08/05/24 05:24 Hct 27.4 % (42.0-54.0) L 08/05/24 05:24 MCV 85.1 fL (80.0-100.0) 08/05/24 05:24 MCH 29.0 pg (27.0-34.0) 08/05/24 05:24 MCHC 34.1 g/dL (33.0-35.0) 08/05/24 05:24 RDW 14.0 % (11.6-16.5) 08/05/24 05:24 Plt Count 451 X10^3/uL (150.0-450.0) H 08/05/24 05:24 MPV 6.5 fL (7.4-11.0) L 08/05/24 05:24 Neut % (Auto) 62.2 % (42.0-75.0) 08/05/24 05:24 Lymph % (Auto) 17.0 % (21.0-51.0) L 08/05/24 05:24 [place] % (Auto) 18.9 % (0.0-13.0) H 08/05/24 05:24 Eos % (Auto) 0.5 % (0.9-2.9) L 08/05/24 05:24 Baso % (Auto) 1.4 % (0.2-1.0) H 08/05/24 05:24 Neut # (Auto) 3.9 x10^3/uL (2.2-4.8) 08/05/24 05:24 Lymph # (Auto) 1.1 X10^3/uL (1.3-2.9) L 08/05/24 05:24 [place] # (Auto) 1.2 x10^3/uL (0.3-0.8) H 08/05/24 05:24 Eos # (Auto) 0.0 x10^3/uL (0.0-0.2) 08/05/24 05:24 Baso # (Auto) 0.1 X10^3/uL (0.0-0.1) 08/05/24 05:24 Absolute Nucleated RBC 0.1 /100WBC 08/05/24 05:24 Sodium 142 mmol/L (136-145) 08/05/24 05:24 Corrected Sodium 143 mmol/L (136-145) 08/05/24 05:24 Potassium 3.6 mmol/L (3.5-5.1) 08/05/24 05:24 Chloride 106 mmol/L (98-107) 08/05/24 05:24 Carbon Dioxide 25.9 mmol/L (21-32) 08/05/24 05:24 BUN 8 mg/dL (7-18) 08/05/24 05:24 Creatinine 0.82 mg/dL (0.70-1.30) 08/05/24 05:24 Est GFR (MDRD) Af Amer > 60 (>60) 08/05/24 05:24 Est GFR (MDRD) Non-Af > 60 (>60) 08/05/24 05:24 Glucose 122 mg/dL (65-99) H 08/05/24 05:24 POC Glucose (mg/dL) 113 mg/dL (65-99) H 08/04/24 05:35 Calcium 8.1 mg/dL (8.5-10.1) L 08/05/24 05:24 Corrected Calcium 9.7 mg/dL (8.5-10.1) 08/05/24 05:24 Magnesium 1.9 mg/dL (2.0-2.9) L 08/05/24 05:24 Total Bilirubin 0.30 mg/dL (0.2-1.0) 08/05/24 05:24 AST 16 Units/L (15-37) 08/05/24 05:24 ALT 15 Units/L (12-78) 08/05/24 05:24 Alkaline Phosphatase 62 Units/L (46-116) 08/05/24 05:24 Total Protein 6.9 g/dL (6.4-8.2) 08/05/24 05:24 Albumin 2.0 g/dL (3.4-5.0) L 08/05/24 05:24 Globulin 4.9 g/dL (2.5-4.5) H 08/05/24 05:24 Albumin/Globulin Ratio 0.4 Ratio (1.1-2.1) L 08/05/24 05:24 Carcinoembryonic Ag <2.0 ng/mL 08/03/24 11:28 Plan (1) Perirectal abscess: Status: Acute (2) History of rectal cancer: Status: Chronic (3) Essential hypertension: Status: None
[2024-08-10 06:13] LABS: BASOPHILS # (AUTO) 0.1 X10^3/uL (0.0-0.1); EOSINOPHILS # (AUTO) 0.2 x10^3/uL (0.0-0.2); EOSINOPHILS % (AUTO) 2.4 % (0.9-2.9); HEMATOCRIT 34.4 % (42.0-54.0); HEMOGLOBIN 11.5 g/dL (13.5-18.0); LYMPHOCYTES # (AUTO) 0.9 X10^3/uL (1.3-2.9); LYMPHOCYTES % (AUTO) 11.4 % (21.0-51.0); MEAN CORPUSCULAR HEMOGLOBIN 28.5 pg (27.0-34.0); MEAN CORPUSCULAR HGB CONC 33.4 g/dL (33.0-35.0); MEAN CORPUSCULAR VOLUME 85.4 fL (80.0-100.0); MEAN PLATELET VOLUME 6.1 fL (7.4-11.0); MONOCYTES # (AUTO) 0.5 x10^3/uL (0.3-0.8); MONOCYTES % (AUTO) 6.2 % (0.0-13.0); NEUTROPHILS # (AUTO) 6.2 x10^3/uL (2.2-4.8); PLATELET COUNT 489 X10^3/uL (150.0-450.0); RED BLOOD COUNT 4.03 X10^6/uL (4.7-6.0); RED CELL DISTRIBUTION WIDTH 14.8 % (11.6-16.5); WHITE BLOOD COUNT 7.9 X10^3/uL (3.6-10.0)
[2024-08-10 06:39] LABS: ALANINE AMINOTRANSFERASE 15 Units/L (12-78); ALBUMIN 2.4 g/dL (3.4-5.0); ALKALINE PHOSPHATASE 56 Units/L (46-116); ASPARTATE AMINO TRANSFERASE 19 Units/L (15-37); BLOOD UREA NITROGEN 5 mg/dL (7-18); CALCIUM 8.6 mg/dL (8.5-10.1); CARBON DIOXIDE 27.2 mmol/L (21-32); CHLORIDE 107 mmol/L (98-107); COR CA(FOR HYPOALB) 9.9 mg/dL (8.5-10.1); COR NA(FOR HYPERGLY) 142 mmol/L (136-145); CREATININE 0.74 mg/dL (0.70-1.30); GLUCOSE 120 mg/dL (65-99); POTASSIUM 3.6 mmol/L (3.5-5.1); SODIUM 142 mmol/L (136-145); TOTAL PROTEIN 7.5 g/dL (6.4-8.2); eGFR NON BLACK RACES > 60 (>60)
[2024-08-10] MEDS ORDERED: CONSULT PHARMACY - POTASSIUM & MAGNESIUM XX SCH (07:00)
[2024-08-10] MEDS ORDERED: ZESTRIL TAB 20 MG ONE (08:21)
[2024-08-10] MEDS: K-DUR TAB 20 MEQ PO SCH (08:36)
[2024-08-10 09:06] VITALS: RESP 19
--- NOTE | 2024-08-10 10:40 | PCM.PROG ---
Progress Note Progress Note for Day of Date of Exam: 08/10/24 Subjective Subjective: Patient seen at bedside, no acute events overnight. Postop day 2 transverse colostomy. He was able to tolerate full liquid diet yesterday. He states his pain has been well-controlled. He has been ambulating. His diet was advanced to regular today. He might be able to be discharged later today as per surgery. Labs/imaging reviewed: - WBC 7.9 hemoglobin 11.5 potassium 3.6 creatinine 0.74 Plan: Continue current care, follow-up surgery recommendations. Advance diet as per surgery. Continue stoma care. Patient stable to be discharged home. Will need to follow-up with PCP and Dr. Carver as scheduled. Past Medical Family Social History Past Med/Fam/Surg Hx: No changes since H&P (Controlled hypertension, history of rectal cancer) Allergies: Allergies No Known Drug Allergies Allergy (Verified 10/24/21 22:47) Vital Signs and I&O's Vital Signs: Vital Signs Temperature 97.4 F Temperature 97.6 F Pulse Rate [Right Brachial] 62 Pulse Rate [Right Brachial] 54 Respiratory Rate 19 Respiratory Rate 20 Blood Pressure [Right Arm] 153/76 Blood Pressure [Right Arm] 148/72 O2 Sat by Pulse Oximetry 99 O2 Sat by Pulse Oximetry 96 Intake and Output: Intake & Output 08/07/24 08/08/24 08/09/24 08/10/24 23:59 23:59 23:59 23:59 Intake Total 3275 / 3275 4342 / 4342 4638 / 4638 120 / 120 Output Total 530 / 530 2985 / 2985 Balance 3275 / 3275 3812 / 3812 1653 / 1653 120 / 120 Physical Exam Oriented: Normal Eyes: Normal Ear: Normal Nose: Normal Respiratory: Normal Cardiovascular: Normal Auscultation: Bowel Sounds: Normal Tenderness: Other (stoma noted) Skin: Normal Musculoskeletal: Normal Psychiatric: Normal Mood Description: Calm Affect: Normal Speech Pattern: Clear and Appropriate Laboratory and Diagnostics 08/10/24 05:13 08/10/24 05:13 Labs: Laboratory WBC 7.9 X10^3/uL (3.6-10.0) 08/10/24 05:13 RBC 4.03 X10^6/uL (4.7-6.0) L 08/10/24 05:13 Hgb 11.5 g/dL (13.5-18.0) L 08/10/24 05:13 Hct 34.4 % (42.0-54.0) L 08/10/24 05:13 MCV 85.4 fL (80.0-100.0) 08/10/24 05:13 MCH 28.5 pg (27.0-34.0) 08/10/24 05:13 MCHC 33.4 g/dL (33.0-35.0) 08/10/24 05:13 RDW 14.8 % (11.6-16.5) 08/10/24 05:13 Plt Count 489 X10^3/uL (150.0-450.0) H 08/10/24 05:13 MPV 6.1 fL (7.4-11.0) L 08/10/24 05:13 Neut % (Auto) 79.0 % (42.0-75.0) H 08/10/24 05:13 Lymph % (Auto) 11.4 % (21.0-51.0) L 08/10/24 05:13 [place] % (Auto) 6.2 % (0.0-13.0) 08/10/24 05:13 Eos % (Auto) 2.4 % (0.9-2.9) 08/10/24 05:13 Baso % (Auto) 1.0 % (0.2-1.0) 08/10/24 05:13 Neut # (Auto) 6.2 x10^3/uL (2.2-4.8) H 08/10/24 05:13 Lymph # (Auto) 0.9 X10^3/uL (1.3-2.9) L 08/10/24 05:13 [place] # (Auto) 0.5 x10^3/uL (0.3-0.8) 08/10/24 05:13 Eos # (Auto) 0.2 x10^3/uL (0.0-0.2) 08/10/24 05:13 Baso # (Auto) 0.1 X10^3/uL (0.0-0.1) 08/10/24 05:13 Absolute Nucleated RBC 0.0 /100WBC 08/10/24 05:13 Sodium 142 mmol/L (136-145) 08/10/24 05:13 Corrected Sodium 142 mmol/L (136-145) 08/10/24 05:13 Potassium 3.6 mmol/L (3.5-5.1) 08/10/24 05:13 Chloride 107 mmol/L (98-107) 08/10/24 05:13 Carbon Dioxide 27.2 mmol/L (21-32) 08/10/24 05:13 BUN 5 mg/dL (7-18) L 08/10/24 05:13 Creatinine 0.74 mg/dL (0.70-1.30) 08/10/24 05:13 Est GFR (MDRD) Af Amer > 60 (>60) 08/10/24 05:13 Est GFR (MDRD) Non-Af > 60 (>60) 08/10/24 05:13 Glucose 120 mg/dL (65-99) H 08/10/24 05:13 POC Glucose (mg/dL) 113 mg/dL (65-99) H 08/04/24 05:35 Calcium 8.6 mg/dL (8.5-10.1) 08/10/24 05:13 Corrected Calcium 9.9 mg/dL (8.5-10.1) 08/10/24 05:13 Magnesium 2.1 mg/dL (2.0-2.9) 08/10/24 05:13 Total Bilirubin 0.30 mg/dL (0.2-1.0) 08/10/24 05:13 AST 19 Units/L (15-37) 08/10/24 05:13 ALT 15 Units/L (12-78) 08/10/24 05:13 Alkaline Phosphatase 56 Units/L (46-116) 08/10/24 05:13 Total Protein 7.5 g/dL (6.4-8.2) 08/10/24 05:13 Albumin 2.4 g/dL (3.4-5.0) L 08/10/24 05:13 Globulin 5.1 g/dL (2.5-4.5) H 08/10/24 05:13 Albumin/Globulin Ratio 0.5 Ratio (1.1-2.1) L 08/10/24 05:13 Carcinoembryonic Ag <2.0 ng/mL 08/03/24 11:28 Plan (1) Perirectal abscess: Status: Acute (2) History of rectal cancer: Status: Chronic (3) Essential hypertension: Status: None
[2024-08-10 13:37] VITALS: BP 132/70; PULSE 67; TEMP 97.9; O2SAT 100
== END 2024-08-10 16:15 | disposition home health service (06) | DRG 908 ==
LOC: MED/SURG
PROVIDERS: ADMIT Surgery; ATTEND Surgery
DX: T81.320A Disruption or dehiscence of gastrointestinal tract anastomosis, repair, or closure, initial encounter; K57.30 Diverticulosis of large intestine without perforation or abscess without bleeding; Z01.810 Encounter for preprocedural cardiovascular examination; I10 Essential (primary) hypertension; L02.31 Cutaneous abscess of buttock; Z90.49 Acquired absence of other specified parts of digestive tract; R00.1 Bradycardia, unspecified; E83.42 Hypomagnesemia